=== PATIENT | female | born 1935 ===

== ENCOUNTER 2021-01-15 12:56 | Inpatient (IN) ==
[2021-01-15] MEDS ORDERED: NS 0.9% 1000 ml BAG 1,000 ML IV ONE (13:12)
[2021-01-15 14:11] LABS: ABS Eosinophils 0.2 10^3/ul (0-0.6); ABS Lymphocytes 1.3 10^3/ul (1.0-4.8); ABS Monocytes 1.1 10^3/ul (0-0.8); ABS Neutrophils 11.5 10^3/ul (1.5-7.7); Eosinophil % 1.5 %; Hematocrit 37 % (35-47); Hemoglobin 12.4 g/dL (12.0-16.0); Mean Corpuscular HGB Conc 34 g/dL (31-36); Mean Corpuscular Hemoglobin 33 pg (27-31); Mean Corpuscular Volume 97 fL (80-97); Mean Platelet Volume 7.7 fL (7.4-10.4); Platelet Count 309 10^3/uL (150-450); Red Blood Count 3.82 10^6 /uL (3.70-4.87); Red Cell Distribution Width 13 % (10-15); White Blood Count 14.1 10^3/uL (3.5-10.8)
[2021-01-15 14:31] LABS: Troponin I 0.03 ng/mL (<0.03)
[2021-01-15 14:42] LABS: ALT 23 U/L (7-52); AST 25 U/L (13-39); Albumin/Globulin Ratio 0.9 (1-3); Alkaline Phosphatase 77 U/L (35-149); Anion Gap 6 mmol/L (2-11); Blood Urea Nitrogen 26 mg/dL (6-24); CO2 Carbon Dioxide 27 mmol/L (22-32); Calcium 9.2 mg/dL (8.6-10.3); Chloride 103 mmol/L (101-111); EGFR African American 108.7 (>60); EGFR Non-African American 89.8 (>60); Globulin 3.4 g/dL (2-4); Glucose 104 mg/dL (70-100); Magnesium 1.8 mg/dL (1.9-2.7); Potassium 3.9 mmol/L (3.5-5.0); Sodium 136 mmol/L (135-145); Total Protein 6.4 g/dL (6.4-8.9)
[2021-01-15 15:05] LABS: TSH Ultra Thyroid Stim Horm 4.39 mcIU/mL (0.34-5.60)
[2021-01-15 15:08] LABS: Urine Appearance Clear; Urine Bilirubin Negative (Negative); Urine Blood 2+ (Negative); Urine Color Yellow; Urine Glucose 1+(50 mg/dL) (Negative); Urine Ketones Negative (Negative); Urine Nitrite Negative (Negative); Urine Protein 2+(100 mg/dL) (Negative); Urine Specific Gravity 1.026 (1.002-1.030); Urine Urobilinogen Negative (Negative)
[2021-01-15 15:16] LABS: Urine Bacteria Absent (Absent); Urine Red Blood Cell 3+(>10/hpf) (Absent); Urine Squamous Epithelial Cell Present (Absent); Urine White Blood Cell Trace(0-5/hpf) (Absent)
[2021-01-15] MEDS ORDERED: Magnesium Sulfate IV 1GM/100ML 1 GM/100 ML BAG IV ONE (15:37)
[2021-01-15] MEDS ORDERED: Morphine 4 MG/ML VIAL (1 ml) IV ONE (15:56)
[2021-01-15] MEDS ORDERED: fentaNYL 100 mcg/2 ml 50 MCG/ML VIAL IV SLOW PU ONE (16:02)
[2021-01-15] MEDS ORDERED: Ketamine HCL 50 mg/ml 10 ml VIAL (500 MG) IV ONE ×2 (16:19→18:59)
[2021-01-15] MEDS ORDERED: Ketamine HCL 50 mg/ml 10 ml VIAL (500 MG) ONE (16:21)
[2021-01-15] MEDS ORDERED: Senna/Docusate 8.6/50 mg (NF) TAB PO SCH (21:00)
[2021-01-15] MEDS ORDERED: Heparin 5000 UNITS/ML 1 mL VIAL SUBCUT SCH (22:00)
[2021-01-15 22:57] LABS: Troponin I 0.04 ng/mL (<0.03)
[2021-01-15] MEDS: Cholecalciferol (VIT D3) 1,000 unit TAB PO SCH (23:14)
[2021-01-15] MEDS: Senna TAB 8.6 mg TAB PO SCH (23:15)
[2021-01-15] MEDS: Docusate LIQ 100 MG/10 ML UDC PO SCH (23:15)
[2021-01-16 02:38] LABS: Troponin I 0.03 ng/mL (<0.03)
[2021-01-16] MEDS ORDERED: Propofol 10 MG/ML 20 ML BTL ONE ×2 (12:39→13:20)
[2021-01-16] MEDS ORDERED: Lidocaine 2% PF 5 ML VIAL ONE (12:41)
[2021-01-16] MEDS ORDERED: fentaNYL 100 mcg/2 ml 50 MCG/ML VIAL ONE (12:44)
[2021-01-16] MEDS ORDERED: Acetaminophen IV 1 GM/100ML 100 ML IV ONE (13:26)
[2021-01-16 16:48] LABS: Hematocrit 36 % (35-47); Hemoglobin 12.2 g/dL (12.0-16.0); Mean Corpuscular HGB Conc 34 g/dL (31-36); Mean Corpuscular Hemoglobin 33 pg (27-31); Mean Corpuscular Volume 97 fL (80-97); Mean Platelet Volume 7.4 fL (7.4-10.4); Platelet Count 317 10^3/uL (150-450); Red Blood Count 3.71 10^6 /uL (3.70-4.87); Red Cell Distribution Width 14 % (10-15); White Blood Count 14.7 10^3/uL (3.5-10.8)
[2021-01-16 17:19] LABS: Calcium 8.1 mg/dL (8.6-10.3); EGFR African American 135.6 (>60); EGFR Non-African American 112.1 (>60); Potassium 3.7 mmol/L (3.5-5.0)
[2021-01-16 18:33] LABS: ABS Eosinophils 0.1 10^3/ul (0-0.6); ABS Lymphocytes 1.2 10^3/ul (1.0-4.8); ABS Monocytes 1.2 10^3/ul (0-0.8); ABS Neutrophils 12.2 10^3/ul (1.5-7.7); Eosinophil % 0.7 %; Lymphocyte % 8.1 %; Nucleated Red Blood Cells % 0.1
[2021-01-16] MEDS: Cholecalciferol (VIT D3) 1,000 unit TAB PO SCH (20:35)
[2021-01-16] MEDS: Senna TAB 8.6 mg TAB PO SCH (20:37)
[2021-01-16] MEDS: Docusate LIQ 100 MG/10 ML UDC PO SCH (20:38)
[2021-01-17] MEDS ORDERED: Metoprolol Tartrate 5 mg VIAL 5 ml VIAL (1 mg/ml) ONE (03:16)
[2021-01-17] MEDS ORDERED: Metoprolol Tartrate 5 mg VIAL 5 ml VIAL (1 mg/ml) IV ONE ×2 (03:16→03:23)
[2021-01-17] MEDS ORDERED: Magnesium Sulfate IV 1GM/100ML 1 GM/100 ML BAG IV ONE (03:28)
[2021-01-17] MEDS ORDERED: Diltiazem IV push/loading dose 5 MG/ML 5 ML vial (25 mg) IV SLOW PU ONE ×2 (03:36→04:49)
[2021-01-17] MEDS ORDERED: KCL 20 MEQ/100 ML IVPREMIX 20 MEQ/100 ML BAG IV ONE (03:36)
[2021-01-17 04:44] LABS: Calcium 8.6 mg/dL (8.6-10.3); EGFR African American 124.5 (>60); EGFR Non-African American 102.9 (>60); Potassium 3.9 mmol/L (3.5-5.0)
[2021-01-17] MEDS ORDERED: Digoxin IV 0.5 MG/2 ML AMP (0.25 MG/ML) IV SLOW PU ONE (05:07)
[2021-01-17] MEDS: Cholecalciferol (VIT D3) 1,000 unit TAB PO SCH (21:22)
[2021-01-17] MEDS: Docusate LIQ 100 MG/10 ML UDC PO SCH (21:23)
[2021-01-17] MEDS: Senna TAB 8.6 mg TAB PO SCH (21:23)
[2021-01-18] MEDS ORDERED: NS 0.9% 500 ml BAG 500 ML IV SCH (16:00)
[2021-01-18 16:46] LABS: Hematocrit 35 % (35-47); Hemoglobin 11.8 g/dL (12.0-16.0); Mean Corpuscular HGB Conc 34 g/dL (31-36); Mean Corpuscular Hemoglobin 32 pg (27-31); Mean Corpuscular Volume 96 fL (80-97); Mean Platelet Volume 7.1 fL (7.4-10.4); Platelet Count 402 10^3/uL (150-450); Red Blood Count 3.66 10^6 /uL (3.70-4.87); Red Cell Distribution Width 13 % (10-15); White Blood Count 17.7 10^3/uL (3.5-10.8)
[2021-01-18 17:01] LABS: EGFR African American 124.5 (>60); EGFR Non-African American 102.9 (>60); Magnesium 2.1 mg/dL (1.9-2.7); Potassium 3.9 mmol/L (3.5-5.0)
[2021-01-18 17:36] LABS: RBC Morphology Normal (Normal)
[2021-01-18 17:37] LABS: ABS Basophils 0.1 10^3/ul (0-0.2); ABS Eosinophils 0.2 10^3/ul (0-0.6); ABS Lymphocytes 1.7 10^3/ul (1.0-4.8); ABS Monocytes 1.3 10^3/ul (0-0.8); ABS Neutrophils 14.5 10^3/ul (1.5-7.7); Eosinophil % 0.8 %; Lymphocyte % 9.8 %
[2021-01-18 18:57] LABS: C Reactive Protein 241.98 mg/L (<8.01)
[2021-01-18] MEDS: Senna TAB 8.6 mg TAB PO SCH (20:44)
[2021-01-18] MEDS: Docusate LIQ 100 MG/10 ML UDC PO SCH (20:44)
[2021-01-18] MEDS: Cholecalciferol (VIT D3) 1,000 unit TAB PO SCH (20:44)
[2021-01-18] MEDS ORDERED: Iohexol 300 (CONTRAST) 10 ML SDV IV ONE (21:04)
[2021-01-18] MEDS ORDERED: Piperacillin/Tazobac ADVAN 3.375 GM in NS 0.9% 100 ml BAG 100 ML IV ONE (21:23)
[2021-01-18] MEDS ORDERED: Zosyn per Pharmacy NOTE FOLLOW UP SCH (22:00)
[2021-01-18 23:36] LABS: Urine Appearance Turbid; Urine Bilirubin Negative (Negative); Urine Blood Negative (Negative); Urine Color Amber; Urine Glucose Negative (Negative); Urine Ketones Trace (Negative); Urine Nitrite Negative (Negative); Urine Protein 2+(100 mg/dL) (Negative); Urine Specific Gravity 1.028 (1.002-1.030); Urine Urobilinogen Positive (Negative)
[2021-01-18 23:46] LABS: Urine Bacteria 1+ (Absent); Urine Red Blood Cell 2+(6-10/hpf) (Absent); Urine Squamous Epithelial Cell Present (Absent); Urine White Blood Cell Trace(0-5/hpf) (Absent)
[2021-01-19] MEDS: Pantoprazole VIAL 40 MG VIAL IV SCH ×2 (03:05→21:19)
[2021-01-19] MEDS: ZOSYN 3.375 GM Q8H per EXTENDED INFUSION IV SCH ×3 (03:05→21:20)
[2021-01-19 07:01] LABS: ABS Eosinophils 0.1 10^3/ul (0-0.6); ABS Lymphocytes 1.4 10^3/ul (1.0-4.8); ABS Monocytes 1.1 10^3/ul (0-0.8); ABS Neutrophils 12.6 10^3/ul (1.5-7.7); Eosinophil % 0.8 %; Hematocrit 34 % (35-47); Hemoglobin 11.7 g/dL (12.0-16.0); Mean Corpuscular HGB Conc 34 g/dL (31-36); Mean Corpuscular Hemoglobin 33 pg (27-31); Mean Corpuscular Volume 96 fL (80-97); Mean Platelet Volume 7.2 fL (7.4-10.4); Platelet Count 385 10^3/uL (150-450); Red Blood Count 3.57 10^6 /uL (3.70-4.87); Red Cell Distribution Width 13 % (10-15); White Blood Count 15.3 10^3/uL (3.5-10.8)
[2021-01-19 07:09] LABS: Calcium 7.8 mg/dL (8.6-10.3); EGFR African American 129.8 (>60); EGFR Non-African American 107.3 (>60); Potassium 3.7 mmol/L (3.5-5.0)
[2021-01-19] MEDS: Senna TAB 8.6 mg TAB PO SCH (21:19)
[2021-01-19] MEDS: Cholecalciferol (VIT D3) 1,000 unit TAB PO SCH (21:19)
[2021-01-19] MEDS: Docusate LIQ 100 MG/10 ML UDC PO SCH (21:19)
[2021-01-20] MEDS: ZOSYN 3.375 GM Q8H per EXTENDED INFUSION IV SCH ×3 (04:38→20:21)
[2021-01-20 06:25] LABS: ABS Basophils 0.1 10^3/ul (0-0.2); ABS Eosinophils 0.1 10^3/ul (0-0.6); ABS Lymphocytes 1.6 10^3/ul (1.0-4.8); Eosinophil % 0.8 %; Hematocrit 33 % (35-47); Hemoglobin 11.5 g/dL (12.0-16.0); Mean Corpuscular HGB Conc 34 g/dL (31-36); Mean Corpuscular Hemoglobin 33 pg (27-31); Mean Corpuscular Volume 96 fL (80-97); Mean Platelet Volume 6.9 fL (7.4-10.4); Platelet Count 442 10^3/uL (150-450); Red Blood Count 3.48 10^6 /uL (3.70-4.87); Red Cell Distribution Width 13 % (10-15); White Blood Count 14.9 10^3/uL (3.5-10.8)
[2021-01-20 06:40] LABS: EGFR African American 117.2 (>60); EGFR Non-African American 96.9 (>60); Potassium 3.4 mmol/L (3.5-5.0)
[2021-01-20] MEDS ORDERED: Potassium Chlor 20 meq TAB.ER PO ONE (14:23)
[2021-01-20] MEDS: Docusate LIQ 100 MG/10 ML UDC PO SCH (20:20)
[2021-01-20] MEDS: Cholecalciferol (VIT D3) 1,000 unit TAB PO SCH (20:21)
[2021-01-20] MEDS: Pantoprazole VIAL 40 MG VIAL IV SCH (20:21)
[2021-01-20] MEDS: Senna TAB 8.6 mg TAB PO SCH (20:21)
[2021-01-21] MEDS: ZOSYN 3.375 GM Q8H per EXTENDED INFUSION IV SCH ×3 (03:22→20:38)
[2021-01-21 06:29] LABS: Hematocrit 34 % (35-47); Hemoglobin 11.6 g/dL (12.0-16.0); Mean Corpuscular HGB Conc 34 g/dL (31-36); Mean Corpuscular Hemoglobin 33 pg (27-31); Mean Corpuscular Volume 97 fL (80-97); Mean Platelet Volume 6.8 fL (7.4-10.4); Platelet Count 487 10^3/uL (150-450); Red Blood Count 3.55 10^6 /uL (3.70-4.87); Red Cell Distribution Width 13 % (10-15); White Blood Count 14.5 10^3/uL (3.5-10.8)
[2021-01-21 06:46] LABS: Albumin 2.7 g/dL (3.2-5.2); Albumin/Globulin Ratio 0.9 (1-3); EGFR African American 110.7 (>60); EGFR Non-African American 91.5 (>60); Globulin 3.1 g/dL (2-4); Magnesium 2.3 mg/dL (1.9-2.7); Potassium 3.6 mmol/L (3.5-5.0); Total Bilirubin 0.6 mg/dL (0.2-1.0); Total Protein 5.8 g/dL (6.4-8.9)
[2021-01-21 07:39] LABS: ABS Basophils 0.1 10^3/ul (0-0.2); ABS Eosinophils 0.2 10^3/ul (0-0.6); ABS Lymphocytes 1.6 10^3/ul (1.0-4.8); ABS Monocytes 0.9 10^3/ul (0-0.8); ABS Neutrophils 11.8 10^3/ul (1.5-7.7); Eosinophil % 1.4 %; Lymphocyte % 10.9 %
[2021-01-21] MEDS ORDERED: NS 0.9% 500 ml BAG 500 ML IV ONE (11:32)
[2021-01-21] MEDS: Docusate LIQ 100 MG/10 ML UDC PO SCH (20:37)
[2021-01-21] MEDS: Pantoprazole VIAL 40 MG VIAL IV SCH (20:38)
[2021-01-21] MEDS: Senna TAB 8.6 mg TAB PO SCH (20:38)
[2021-01-21] MEDS: Cholecalciferol (VIT D3) 1,000 unit TAB PO SCH (20:38)
[2021-01-22] MEDS: ZOSYN 3.375 GM Q8H per EXTENDED INFUSION IV SCH ×3 (03:15→22:18)
[2021-01-22 05:52] LABS: ABS Basophils 0.1 10^3/ul (0-0.2); ABS Eosinophils 0.1 10^3/ul (0-0.6); ABS Lymphocytes 1.5 10^3/ul (1.0-4.8); ABS Neutrophils 14.6 10^3/ul (1.5-7.7); Eosinophil % 0.5 %; Hematocrit 33 % (35-47); Hemoglobin 11.2 g/dL (12.0-16.0); Lymphocyte % 8.4 %; Mean Corpuscular HGB Conc 34 g/dL (31-36); Mean Corpuscular Hemoglobin 33 pg (27-31); Mean Corpuscular Volume 96 fL (80-97); Mean Platelet Volume 7.2 fL (7.4-10.4); Platelet Count 492 10^3/uL (150-450); Red Blood Count 3.43 10^6 /uL (3.70-4.87); Red Cell Distribution Width 13 % (10-15); White Blood Count 17.2 10^3/uL (3.5-10.8)
[2021-01-22 06:07] LABS: Calcium 8.1 mg/dL (8.6-10.3); EGFR African American 129.8 (>60); EGFR Non-African American 107.3 (>60); Potassium 3.5 mmol/L (3.5-5.0)
[2021-01-22 09:07] LABS: INR 1.17 (0.86-1.15)
[2021-01-22] MEDS ORDERED: fentaNYL 100 mcg/2 ml 50 MCG/ML VIAL ONE (15:12)
[2021-01-22] MEDS: Docusate LIQ 100 MG/10 ML UDC PO SCH (22:13)
[2021-01-22] MEDS: Pantoprazole VIAL 40 MG VIAL IV SCH (22:13)
[2021-01-22] MEDS: Cholecalciferol (VIT D3) 1,000 unit TAB PO SCH (22:17)
[2021-01-22] MEDS: Senna TAB 8.6 mg TAB PO SCH (22:19)
[2021-01-23] MEDS: ZOSYN 3.375 GM Q8H per EXTENDED INFUSION IV SCH ×3 (03:43→15:49)
[2021-01-23 08:16] LABS: ABS Eosinophils 0.1 10^3/ul (0-0.6); ABS Lymphocytes 1.8 10^3/ul (1.0-4.8); ABS Monocytes 0.8 10^3/ul (0-0.8); ABS Neutrophils 12.2 10^3/ul (1.5-7.7); Eosinophil % 0.4 %; Hematocrit 36 % (35-47); Hemoglobin 12.1 g/dL (12.0-16.0); Lymphocyte % 12.1 %; Mean Corpuscular HGB Conc 34 g/dL (31-36); Mean Corpuscular Hemoglobin 32 pg (27-31); Mean Corpuscular Volume 97 fL (80-97); Platelet Count 484 10^3/uL (150-450); Red Blood Count 3.72 10^6 /uL (3.70-4.87); Red Cell Distribution Width 13 % (10-15)
[2021-01-23] MEDS: Cholecalciferol (VIT D3) 1,000 unit TAB PO SCH (22:14)
[2021-01-23] MEDS: Senna TAB 8.6 mg TAB PO SCH (22:16)
[2021-01-23] MEDS: Pantoprazole VIAL 40 MG VIAL IV SCH (22:20)
[2021-01-23] MEDS: Docusate LIQ 100 MG/10 ML UDC PO SCH (22:30)
[2021-01-24] MEDS: ZOSYN 3.375 GM Q8H per EXTENDED INFUSION IV SCH ×4 (00:18→16:57)
[2021-01-24] MEDS: Cholecalciferol (VIT D3) 1,000 unit TAB PO SCH (21:30)
[2021-01-24] MEDS: Senna TAB 8.6 mg TAB PO SCH (21:30)
[2021-01-24] MEDS: Pantoprazole VIAL 40 MG VIAL IV SCH (21:31)
[2021-01-24] MEDS: Docusate LIQ 100 MG/10 ML UDC PO SCH (21:31)
[2021-01-25] MEDS: ZOSYN 3.375 GM Q8H per EXTENDED INFUSION IV SCH ×4 (00:12→23:43)
[2021-01-25] MEDS: Senna TAB 8.6 mg TAB PO SCH (21:13)
[2021-01-25] MEDS: Cholecalciferol (VIT D3) 1,000 unit TAB PO SCH (21:13)
[2021-01-25] MEDS: Docusate LIQ 100 MG/10 ML UDC PO SCH (21:13)
[2021-01-25] MEDS: Pantoprazole VIAL 40 MG VIAL IV SCH (21:14)
[2021-01-26] MEDS: ZOSYN 3.375 GM Q8H per EXTENDED INFUSION IV SCH ×2 (07:22→15:48)
[2021-01-26 10:10] LABS: ABS Basophils 0.1 10^3/ul (0-0.2); ABS Eosinophils 0.3 10^3/ul (0-0.6); ABS Lymphocytes 1.7 10^3/ul (1.0-4.8); ABS Monocytes 0.8 10^3/ul (0-0.8); ABS Neutrophils 9.9 10^3/ul (1.5-7.7); Eosinophil % 2.1 %; Hematocrit 33 % (35-47); Hemoglobin 10.9 g/dL (12.0-16.0); Mean Corpuscular HGB Conc 33 g/dL (31-36); Mean Corpuscular Hemoglobin 32 pg (27-31); Mean Corpuscular Volume 97 fL (80-97); Mean Platelet Volume 6.7 fL (7.4-10.4); Platelet Count 555 10^3/uL (150-450); Red Blood Count 3.38 10^6 /uL (3.70-4.87); Red Cell Distribution Width 14 % (10-15); White Blood Count 12.8 10^3/uL (3.5-10.8)
[2021-01-26] MEDS: Senna TAB 8.6 mg TAB PO SCH (20:27)
[2021-01-26] MEDS: Docusate LIQ 100 MG/10 ML UDC PO SCH (20:27)
[2021-01-26] MEDS: Fluconazole 400 MG IVPREMIX 400 MG/200 ML BAG IVPB SCH ×2 (20:40→22:50)
[2021-01-26] MEDS: Cholecalciferol (VIT D3) 1,000 unit TAB PO SCH (20:41)
[2021-01-26] MEDS: cefTRIAXone 1 gm/50 mL NS BAG 1 GM/50 ML BAG IVPB SCH (21:33)
[2021-01-27 06:14] LABS: ABS Basophils 0.2 10^3/ul (0-0.2); ABS Eosinophils 0.2 10^3/ul (0-0.6); ABS Lymphocytes 1.8 10^3/ul (1.0-4.8); ABS Monocytes 0.9 10^3/ul (0-0.8); ABS Neutrophils 11.6 10^3/ul (1.5-7.7); Eosinophil % 1.2 %; Hematocrit 34 % (35-47); Hemoglobin 11.3 g/dL (12.0-16.0); Lymphocyte % 11.9 %; Mean Corpuscular HGB Conc 33 g/dL (31-36); Mean Corpuscular Hemoglobin 32 pg (27-31); Mean Corpuscular Volume 97 fL (80-97); Mean Platelet Volume 6.9 fL (7.4-10.4); Platelet Count 631 10^3/uL (150-450); Red Blood Count 3.53 10^6 /uL (3.70-4.87); Red Cell Distribution Width 13 % (10-15); White Blood Count 14.7 10^3/uL (3.5-10.8)
[2021-01-27 06:31] LABS: Albumin 2.9 g/dL (3.2-5.2); Calcium 8.1 mg/dL (8.6-10.3); Potassium 3.4 mmol/L (3.5-5.0); Total Bilirubin 0.3 mg/dL (0.2-1.0)
[2021-01-27 06:36] LABS: EGFR Non-African American 93.2 (>60)
[2021-01-27 06:37] LABS: Albumin/Globulin Ratio 0.8 (1-3); EGFR African American 112.8 (>60); Globulin 3.5 g/dL (2-4); Total Protein 6.4 g/dL (6.4-8.9)
[2021-01-27] MEDS ORDERED: Potassium Chlor 20 meq TAB.ER PO ONE (07:46)
[2021-01-27] MEDS ORDERED: Lorazepam PYXIS KEY PRN (15:02)
[2021-01-27] MEDS ORDERED: LORazepam 2 mg VIAL 1 ml IV PUSH ONE (15:02)
[2021-01-27] MEDS: cefTRIAXone 1 gm/50 mL NS BAG 1 GM/50 ML BAG IVPB SCH (18:11)
[2021-01-27] MEDS: Cholecalciferol (VIT D3) 1,000 unit TAB PO SCH (22:20)
[2021-01-27] MEDS: Docusate LIQ 100 MG/10 ML UDC PO SCH (22:21)
[2021-01-27] MEDS: Senna TAB 8.6 mg TAB PO SCH (22:21)
[2021-01-28 06:14] LABS: ABS Basophils 0.1 10^3/ul (0-0.2); ABS Eosinophils 0.3 10^3/ul (0-0.6); ABS Lymphocytes 2.1 10^3/ul (1.0-4.8); ABS Neutrophils 9.2 10^3/ul (1.5-7.7); Eosinophil % 2.3 %; Hematocrit 31 % (35-47); Hemoglobin 10.3 g/dL (12.0-16.0); Lymphocyte % 16.8 %; Mean Corpuscular HGB Conc 34 g/dL (31-36); Mean Corpuscular Hemoglobin 32 pg (27-31); Mean Corpuscular Volume 96 fL (80-97); Mean Platelet Volume 6.9 fL (7.4-10.4); Platelet Count 572 10^3/uL (150-450); Red Blood Count 3.19 10^6 /uL (3.70-4.87); Red Cell Distribution Width 13 % (10-15); White Blood Count 12.7 10^3/uL (3.5-10.8)
[2021-01-28 06:23] LABS: Calcium 8.2 mg/dL (8.6-10.3); EGFR African American 110.7 (>60); EGFR Non-African American 91.5 (>60); Potassium 3.7 mmol/L (3.5-5.0)
[2021-01-28] MEDS: cefTRIAXone 1 gm/50 mL NS BAG 1 GM/50 ML BAG IVPB SCH (18:24)
[2021-01-28] MEDS: Docusate LIQ 100 MG/10 ML UDC PO SCH (22:02)
[2021-01-28] MEDS: Cholecalciferol (VIT D3) 1,000 unit TAB PO SCH (22:03)
[2021-01-28] MEDS: Senna TAB 8.6 mg TAB PO SCH (22:04)
[2021-01-29 04:55] LABS: ABS Basophils 0.1 10^3/ul (0-0.2); ABS Eosinophils 0.3 10^3/ul (0-0.6); ABS Lymphocytes 2.2 10^3/ul (1.0-4.8); ABS Monocytes 1.1 10^3/ul (0-0.8); ABS Neutrophils 9.6 10^3/ul (1.5-7.7); Eosinophil % 2.2 %; Hematocrit 33 % (35-47); Hemoglobin 10.9 g/dL (12.0-16.0); Lymphocyte % 16.7 %; Mean Corpuscular HGB Conc 33 g/dL (31-36); Mean Corpuscular Hemoglobin 32 pg (27-31); Mean Corpuscular Volume 97 fL (80-97); Mean Platelet Volume 6.7 fL (7.4-10.4); Platelet Count 577 10^3/uL (150-450); Red Blood Count 3.39 10^6 /uL (3.70-4.87); Red Cell Distribution Width 13 % (10-15); White Blood Count 13.3 10^3/uL (3.5-10.8)
[2021-01-29] MEDS ORDERED: Cefepime 1 GM in NS 0.9% 50 ML 50 ML IVPB SCH (10:00)
[2021-01-29] MEDS: Cefepime 1 GM in Dextrose 1 GM/50 ML BAG IV SCH ×2 (11:35→22:41)
[2021-01-29] MEDS: Cholecalciferol (VIT D3) 1,000 unit TAB PO SCH (21:11)
[2021-01-29] MEDS: Senna TAB 8.6 mg TAB PO SCH (22:28)
[2021-01-29] MEDS: Docusate LIQ 100 MG/10 ML UDC PO SCH (22:28)
[2021-01-30 05:37] LABS: ABS Basophils 0.1 10^3/ul (0-0.2); ABS Eosinophils 0.3 10^3/ul (0-0.6); ABS Lymphocytes 2.1 10^3/ul (1.0-4.8); ABS Neutrophils 7.8 10^3/ul (1.5-7.7); Eosinophil % 2.8 %; Hematocrit 32 % (35-47); Hemoglobin 10.7 g/dL (12.0-16.0); Lymphocyte % 18.9 %; Mean Corpuscular HGB Conc 33 g/dL (31-36); Mean Corpuscular Hemoglobin 32 pg (27-31); Mean Corpuscular Volume 97 fL (80-97); Mean Platelet Volume 6.8 fL (7.4-10.4); Platelet Count 592 10^3/uL (150-450); Red Cell Distribution Width 14 % (10-15); White Blood Count 11.4 10^3/uL (3.5-10.8)
[2021-01-30 05:54] LABS: C Reactive Protein 80.93 mg/L (<8.01); Calcium 8.6 mg/dL (8.6-10.3); EGFR African American 99.5 (>60); EGFR Non-African American 82.2 (>60); Magnesium 2.1 mg/dL (1.9-2.7); Potassium 4.2 mmol/L (3.5-5.0)
[2021-01-30] MEDS: Cefepime 1 GM in Dextrose 1 GM/50 ML BAG IV SCH ×2 (10:28→22:15)
[2021-01-30] MEDS: Senna TAB 8.6 mg TAB PO SCH (20:57)
[2021-01-30] MEDS: Docusate LIQ 100 MG/10 ML UDC PO SCH (20:57)
[2021-01-30] MEDS: Cholecalciferol (VIT D3) 1,000 unit TAB PO SCH (20:57)
[2021-01-31] MEDS: Cefepime 1 GM in Dextrose 1 GM/50 ML BAG IV SCH ×2 (10:48→22:12)
[2021-01-31] MEDS: Docusate LIQ 100 MG/10 ML UDC PO SCH (19:52)
[2021-01-31] MEDS: Cholecalciferol (VIT D3) 1,000 unit TAB PO SCH (19:53)
[2021-01-31] MEDS: Senna TAB 8.6 mg TAB PO SCH (19:53)
[2021-02-01] MEDS: Cefepime 1 GM in Dextrose 1 GM/50 ML BAG IV SCH ×2 (09:57→21:22)
[2021-02-01 11:20] LABS: ABS Basophils 0.1 10^3/ul (0-0.2); ABS Eosinophils 0.1 10^3/ul (0-0.6); ABS Lymphocytes 1.5 10^3/ul (1.0-4.8); ABS Monocytes 1.1 10^3/ul (0-0.8); ABS Neutrophils 7.5 10^3/ul (1.5-7.7); Eosinophil % 1.4 %; Hematocrit 36 % (35-47); Lymphocyte % 14.9 %; Mean Corpuscular HGB Conc 33 g/dL (31-36); Mean Corpuscular Hemoglobin 33 pg (27-31); Mean Corpuscular Volume 98 fL (80-97); Mean Platelet Volume 7.1 fL (7.4-10.4); Platelet Count 626 10^3/uL (150-450); Red Blood Count 3.69 10^6 /uL (3.70-4.87); Red Cell Distribution Width 14 % (10-15); White Blood Count 10.3 10^3/uL (3.5-10.8)
[2021-02-01] MEDS: Cholecalciferol (VIT D3) 1,000 unit TAB PO SCH (21:21)
[2021-02-01] MEDS: Senna TAB 8.6 mg TAB PO SCH (21:21)
[2021-02-01] MEDS: Docusate LIQ 100 MG/10 ML UDC PO SCH (21:22)
[2021-02-02] MEDS: Cefepime 1 GM in Dextrose 1 GM/50 ML BAG IV SCH (10:38)
[2021-02-02 12:25] VITALS: BP 134/67
== END 2021-02-02 14:05 | DRG 562 ==
LOC: ED 12:56 → SSU 12:56 → MEDTELE 01-17 04:49 → MED 01-23 22:56
PROVIDERS: ADMIT Internal Medicine; ATTEND Hospitalist